=== PATIENT | female | born 1985 | race Asian ===

== ENCOUNTER 2022-10-20 13:55 | Outpatient (CLI) | payer OTHER ==
[2022-10-20] MEDS ORDERED: iohexoL 240 mgI/mL, 50 ML INFUS..BTL IV ONE (14:23)
== END 2022-10-20 17:53 | disposition home or self-care (01) ==
LOC: SRD 13:55
PROVIDERS: ATTEND Student in an Organized Health Care Education/Training Program
DX: N92.6 Irregular menstruation, unspecified (principal)
CPT/HCPCS: 74740; 58340; Q9966; C1751